=== PATIENT | female | born 1985 | race Caucasian/White ===

== ENCOUNTER 2019-04-07 19:18 | Emergency (ER) | payer MEDICAID ==
[~2019-04-07] VITALS: Ht 152.4 cm; Wt 72.0 kg
[2019-04-07 21:13] VITALS: BP 137/73
== END 2019-04-07 22:09 | disposition left against medical advice (07) ==
LOC: ER 19:18
DX: R42 Dizziness and giddiness (principal); Z53.21 Procedure and treatment not carried out due to patient leaving prior to being seen by health care provider

== ENCOUNTER 2023-08-08 11:55 | Emergency (ER) | payer MEDICAID ==
[~2023-08-08] VITALS: Ht 160 cm; Wt 66.0 kg
[2023-08-08 12:02] VITALS: BP 144/57; PULSE 87; TEMP 98.1; O2SAT 98
[2023-08-08] MEDS ORDERED: NIRM1TAB PO (12:46)
== END 2023-08-08 14:06 | disposition home or self-care (01) ==
LOC: ER 11:55
DX: U07.1 COVID-19 (principal)
CPT/HCPCS: 71045; 99283